=== PATIENT | male | born 1985 | race Caucasian/White ===

== ENCOUNTER 2017-06-12 14:58 | Emergency (ER) | payer MEDICAID, OTHER ==
[2017-06-12] MEDS: ONDANSETRON (ODT) 4 MG TAB ODT (19:12)
[2017-06-12] MEDS: morphine 4 MG/ML VIAL IM (19:13)
== END 2017-06-12 20:07 | disposition home or self-care (01) ==
LOC: FTE 14:58
DX: M25.562 Pain in left knee (principal); I10 Essential (primary) hypertension; F17.210 Nicotine dependence, cigarettes, uncomplicated
CPT/HCPCS: 29505; 73562; 96372; 99284-25